=== PATIENT | female | born 1980 | race Caucasian/White ===

== ENCOUNTER 2018-01-16 17:23 | Inpatient (IN) | payer BC ==
[~2018-01-16] VITALS: Ht 157.5 cm; Wt 56.1 kg
[2018-01-16 18:26] LABS: BASO % 0.6 %; BASO ABS # 0.03 K/uL (0-0.2); EOS % 1.7 %; EOS ABS # 0.09 K/uL (0-0.5); HEMATOCRIT 39.1 % (37-47); HEMOGLOBIN 13.6 g/dL (12.0-16.0); IG# 0.02 K/uL (0.00-0.02); LYMPH % 37.1 %; LYMPH ABS # 1.96 K/uL (1.2-3.4); MEAN CELL VOLUME 91.4 fL (80-100); MEAN CORPUSCULAR HEMOGLOBIN 31.8 pg (25-34); MEAN CORPUSCULAR HGB CONC 34.8 g/dl (32-36); MEAN PLATELET VOLUME 9.7 fL (7.4-10.4); MONO % 7.8 %; MONO ABS # 0.41 K/uL (0.11-0.59); NEUT % 52.4 %; NEUT ABS # 2.78 K/uL (1.4-6.5); PLATELET COUNT 266 K/uL (130-400); RED CELL DISTRIBUTION WIDTH SD 46.5 fL (36.4-46.3); WHITE BLOOD COUNT 5.29 K/uL (4.8-10.8)
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
[2018-01-16 18:59] LABS: ALBUMIN 4.2 gm/dl (3.4-5.0); CALCIUM 8.5 mg/dl (8.5-10.1); CREATININE 0.72 mg/dl (0.60-1.20); POTASSIUM 3.5 mmol/L (3.5-5.1); TOTAL PROTEIN 8.5 gm/dl (6.4-8.2)
[2018-01-16] MEDS ORDERED: LISI-461 PO (23:21)
[2018-01-16] MEDS ORDERED: BUPR-79 PO (23:21)
[2018-01-16] MEDS ORDERED: BUSP5TAB59 PO (23:21)
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
[2018-01-17] MEDS ORDERED: NICOTINE POLACRILEX 2 MG GUM ONE (04:47)
--- NOTE | 2018-01-17 05:45 | EMERGENCY ROOM VISIT NOTE ---
ED Visit Note First contact with patient: 01:57 This case was signed out to me this case was signed out to me at change of shift awaiting sobriety. The patient was evaluated by staff from [address]. around 4 AM. The patient was refusing inpatient psychiatric care. I had a lengthy conversation with her with regards to her DUI and feelings of hopelessness with regards to her divorce. The patient had made suicidal threats to the police. There is a 302 petition on the chart which I reviewed. The patient has no insight to her actions. She had been sober for approximately 1 month after attending a rehab. After some discussion, the patient was willing to admit herself voluntarily for inpatient psychiatric care. The patient will be admitted to [facility] [address].
[2018-01-17] MEDS ORDERED: NURSING VERBAL MED ORDER ONE (07:00)
[2018-01-17 07:11] VITALS: O2SAT 98
[2018-01-17] MEDS ORDERED: ACETAMINOPHEN 325 MG TAB PO PRN (07:15)
[2018-01-17] MEDS ORDERED: MAGNESIUM HYDROXIDE SUSP 30 ML UDC PO PRN (07:15)
[2018-01-17] MEDS ORDERED: hydrOXYzine HCL 25 MG TAB PO PRN (07:15)
[2018-01-17] MEDS ORDERED: BISMUTH SUBSALICYLATE PER ML OMNICELL CHARGE PO PRN (07:15)
[2018-01-17] MEDS ORDERED: SODIUM CHLORIDE 0.65% NA SOLN 45 ML (OCEAN) PRN (07:15)
[2018-01-17] MEDS ORDERED: ALUMINUM/MAGNESIUM SUSP 30 ML UDC PO PRN (07:15)
[2018-01-17] MEDS ORDERED: ESCITALOPRAM OXALATE 10 MG TAB PO ONE (09:30)
[2018-01-17 09:45] VITALS: BP 146/100; PULSE 79; TEMP 36.8; Ht 157.5 cm; Wt 56.1 kg
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
[2018-01-17] MEDS ORDERED: BuPROPion SR 150 MG TABCR PO ONE (10:15)
[2018-01-17] MEDS ORDERED: PROMETHAZINE HCL 25 MG TAB PO ONE (10:15)
[2018-01-17 15:45] VITALS: BP_SYST 153; BP_SYST 172; BP_DIAS 120; BP_DIAS 121; PULSE 80; TEMP 36.8
[2018-01-17 17:45] VITALS: BP_SYST 153; BP_SYST 172; BP_DIAS 120; BP_DIAS 121; PULSE 80; TEMP 36.7
[2018-01-17] MEDS ORDERED: CLONIDINE HCL 0.1 MG TAB PO ONE (18:00)
[2018-01-17] MEDS ORDERED: LISINOPRIL 20 MG TAB PO ONE (18:00)
[2018-01-17 18:37] VITALS: BP 123/83; PULSE 79
[2018-01-17 20:47] VITALS: BP 118/81; PULSE 72; TEMP 36.3
[2018-01-18 06:57] VITALS: BP_SYST 107; BP_SYST 120; BP_DIAS 75; BP_DIAS 87; PULSE 72; PULSE 90; TEMP 36.7
[2018-01-18 08:15] VITALS: BP 110/78; PULSE 76; TEMP 36.8
[2018-01-18] MEDS: ESCITALOPRAM OXALATE 10 MG TAB PO SCH (08:55)
[2018-01-18] MEDS: BuPROPion SR 150 MG TABCR PO SCH (08:55)
[2018-01-18] MEDS: LISINOPRIL 10 MG TAB PO SCH (08:56)
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
[2018-01-18 12:45] VITALS: BP 144/95; PULSE 69; TEMP 36.2
[2018-01-18 16:29] VITALS: BP 136/97; PULSE 74; TEMP 36.8
[2018-01-18 20:50] VITALS: BP 118/79; PULSE 69; TEMP 36.7
[2018-01-18] MEDS: hydrOXYzine HCL 25 MG TAB PO PRN (21:41)
[2018-01-19 06:53] VITALS: BP_SYST 116; BP_SYST 128; BP_DIAS 81; BP_DIAS 83; PULSE 76; PULSE 80; TEMP 36.8
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
[2018-01-19 08:42] VITALS: BP 127/74; PULSE 78; TEMP 36.7
[2018-01-19] MEDS: ESCITALOPRAM OXALATE 10 MG TAB PO SCH (08:55)
[2018-01-19] MEDS: LISINOPRIL 10 MG TAB PO SCH (08:56)
[2018-01-19] MEDS: BuPROPion SR 150 MG TABCR PO SCH (08:56)
[2018-01-19] MEDS: hydrOXYzine HCL 25 MG TAB PO PRN ×2 (21:14→22:10)
[2018-01-20 06:47] VITALS: BP_SYST 119; BP_SYST 125; BP_DIAS 81; BP_DIAS 89; PULSE 69; PULSE 74; TEMP 36.9
[2018-01-20] MEDS: ESCITALOPRAM OXALATE 10 MG TAB PO SCH (08:43)
[2018-01-20] MEDS: BuPROPion SR 150 MG TABCR PO SCH (08:43)
[2018-01-20] MEDS: LISINOPRIL 10 MG TAB PO SCH (08:44)
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
[2018-01-20] MEDS: hydrOXYzine HCL 25 MG TAB PO PRN (21:26)
[2018-01-21 06:54] VITALS: BP_SYST 118; BP_SYST 130; BP_DIAS 85; BP_DIAS 86; PULSE 67; PULSE 75; TEMP 36.6
[2018-01-21] MEDS: ESCITALOPRAM OXALATE 10 MG TAB PO SCH (08:36)
[2018-01-21] MEDS: LISINOPRIL 10 MG TAB PO SCH (08:36)
[2018-01-21] MEDS: BuPROPion SR 150 MG TABCR PO SCH (08:37)
[2018-01-21] MEDS ORDERED: LXP10 PO (09:29)
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
== END 2018-01-21 12:05 | disposition home or self-care (01) | DRG 897 ==
LOC: C.EDB 17:25 → C.MHU 01-17 06:46
PROVIDERS: ADMIT Student in an Organized Health Care Education/Training Program; ATTEND Student in an Organized Health Care Education/Training Program
DX: F10.220 Alcohol dependence with intoxication, uncomplicated (principal); R45.851 Suicidal ideations; F33.2 Major depressive disorder, recurrent severe without psychotic features; Z88.2 Allergy status to sulfonamides; I10 Essential (primary) hypertension; F41.1 Generalized anxiety disorder; V47.0XXA Car driver injured in collision with fixed or stationary object in nontraffic accident, initial encounter

== ENCOUNTER → 2018-01-16 | Outpatient (CLI) | payer OTHER ==
[~2018-01-16] MED LIST: BUPR-79 PO; BUSP5TAB59 PO; LISI-461 PO; LXP10 PO
== END | disposition home or self-care (01) ==
LOC: C.LAB 19:22
DX: Z02.83 Encounter for blood-alcohol and blood-drug test (principal)